=== PATIENT | male | born 2000 | race Hispanic/Latino ===

== ENCOUNTER 2022-05-18 08:51 | Emergency (ER) | payer SELFPAY ==
[2022-05-18] MEDS ORDERED: Fentanyl 100 MCG/2 ML VIAL ONE (09:27)
[2022-05-18 09:55] LABS: #Eosinphils 0.2 thou/uL (0.0-0.7); #Lymphocytes 1.8 thou/uL (1.20-3.40); #Monocytes 0.4 thou/uL (0.11-0.59); #Neutrophils 7.7 thou/uL (1.40-6.50); %Basophils 0.2 % (0.0-1.0); %Eosinophils 2.2 % (0.0-10.0); %Lymphocytes 17.6 % (21.0-51.0); %Monocytes 3.9 % (0.0-10.0); %Neutrophils 76.3 % (42.0-75.0); Hemoglobin 14.5 g/dL (14.0-18.0); Mean Corpuscular Hemoglobin 28.3 pg (27.0-31.0); Mean Platelet Volume 9.7 fL (7.4-10.4); Platelet Count 188 thou/uL (130-400); Red Blood Cell (RBC) Count 5.13 mill/uL (4.70-6.10)
[2022-05-18 10:01] LABS: ALT (SGPT) 103 U/L (8-55); AST (SGOT) 141 U/L (5-34); Alkaline Phosphatase 59 U/L (40-110); Anion Gap 12 mmol/L (10-20); BUN (Urea Nitrogen) 9 mg/dL (8.9-20.6); Bilirubin, Total 0.4 mg/dL (0.2-1.2); Calc. Creatinine Clearance 0 mL/min (70-130); Calcium 8.8 mg/dL (7.8-10.44); Carbon Dioxide 22 mmol/L (22-29); Chloride 105 mmol/L (98-107); Estimated GFR 117; Globulin 2.6 g/dL (2.4-3.5); Glucose 128 mg/dL (70-105); Potassium 3.8 mmol/L (3.5-5.1); Protein, Total 6.6 g/dL (6.0-8.3); Sodium 135 mmol/L (136-145)
[2022-05-18] MEDS ORDERED: Iopamidol 370 76% 50 ML VIAL FS ONE (13:49)
== END 2022-05-18 11:03 | disposition home or self-care (01) ==
LOC: ERS 08:51
DX: S22.41XA Multiple fractures of ribs, right side, initial encounter for closed fracture (principal); R74.8 Abnormal levels of other serum enzymes; W13.2XXA Fall from, out of or through roof, initial encounter
CPT/HCPCS: 36415; 70450; 71045; 71260; 72125; 72170; 74177; 80053; 85025; 96374; J3010; Q9967